=== PATIENT | male | born 1955 | race Caucasian/White ===

== ENCOUNTER 2020-09-25 12:32 | Inpatient (IN) ==
[2020-09-25] MEDS ORDERED: ONDANSETRON 4 MG/2 ML VIAL IV PRN (14:41)
[2020-09-25] MEDS ORDERED: SENNOSIDES 1 TABLET PO PRN (14:41)
[2020-09-25] MEDS ORDERED: LACTULOSE 20 GM/30 ML ORAL.SOL PO PRN (14:41)
[2020-09-25] MEDS: 0.9 % SODIUM CHLORIDE 1,000 ML IV SCH (15:00)
[2020-09-25 15:43] LABS: Hematocrit 27.7 % (41.0-55.0); Mean Cell Volume 89.4 fL (80.0-100.0); Mean Corpuscular HGB Conc 32.5 g/dL (31.0-36.0); Mean Platelet Volume 10.7 fL (7.4-10.4); Platelet Count 147 K/mcL (140-440); Red Cell Distribution Width 14.1 % (11.5-14.5); WBC 14.2 K/mcL (4.5-11.0)
[2020-09-25] MEDS ORDERED: PANTOPRAZOLE 40 MG VIAL IV ONE (15:56)
[2020-09-25] MEDS ORDERED: PANTOPRAZOLE 80 MG in 0.9 % SODIUM CHLORIDE 100 ML IV SCH (16:00)
[2020-09-25 16:10] LABS: ALT/SGPT 13 U/L (<40); AST/SGOT 14 U/L (<40); Albumin 3.7 gm/dL (3.2-5.2); Albumin/Globulin Ratio 1.8 (1.0-2.3); Alkaline Phosphatase 54 U/L (39-117); Bilirubin,Total 0.3 mg/dL (0.1-1.0); Blood Urea Nitrogen 18 mg/dL (8-23); Calcium 8.2 mg/dL (8.6-10.4); Carbon Dioxide 23 mmol/L (22-30); Chloride 106 mmol/L (96-108); Globulin 2.1 gm/dL (2.2-3.7); Glomerular Filtration Rate 92; Glucose 151 mg/dL (70-105)
[2020-09-25] MEDS ORDERED: PEG 3350/NA SULF,BICARB,CL/KCL 4,000 ML ORAL.SOL PO ONE (16:10)
[2020-09-25 16:13] LABS: INR 1.1 (0.9-1.1); Prothrombin Time 14.5 sec (11.9-14.5)
--- NOTE | 2020-09-25 16:17 | Internal Medicine Consult Note ---
HPI Data of Consult Consult date: 09/25/20 Primary Care Provider: Emir Baldwin Consult Narrative Patient Information: Note initiated : 09/25/20 at 4:10 pm Service Date, if different from initiated Date: [] Patient: Mamadou Ruggiero 65 y/o M admitted on 09/25/20 for GI bleed. Chief Complaint: [hematochezia] Mr. Ruggiero is a 65 year old white male on clopidogrel due to a history of DVT with PAD who presents for evaluation of a 24 hour history of painless hematochezia. He was buying horn at a grocery store for a when he was struck by the urge to have an urgent BM and was surprised to pass only hematochezia. He returned home and had 12-13 episodes throughout the night, ultimately presenting to [facility] ED, where hemoglobin was 10. He was transferred here for GI evaluation. Bleeding stopped at 1pm, when he passed brown stool per his report. He has not previously had a colonoscopy. He admits he uses Aleve 2 tablets 2-3 times month for headache or insomnia. He denies any melena, dysphagia, heartburn or indigestion. Past medical history is signficant for gout, hypertension, DVT, PAD. Past surgical history is significant for bilateral inguinal hernia repair and popliteal/femoral stent placement. Current medications include clopidogrel, losartan, allopurinol, naproxen. cc:: CC: Figueroa Caldera MD Review of Systems All systems: reviewed and no additional remarkable complaints except as stated PFSH PFSH All Active Problems (Updated 09/25/20 @ 16:17 by LANA Hinojosa) Hematochezia (Acute) MEDS/ALLERGIES Home Medications and Allergies Home Medications Medication Instructions Recorded Confirmed Type allopurinol 300 mg PO DAILY 09/25/20 09/25/20 History atenolol 100 mg PO DAILY 09/25/20 09/25/20 History clopidogrel 75 mg PO DAILY 09/25/20 09/25/20 History Allergies Allergy/AdvReac Type Severity Reaction Status Date / Time influenza virus vaccine ts Allergy Mild Fever Verified 09/25/20 15:58 [id number] (36 mos,up) [From Fluarix] Sulfa (Sulfonamide Allergy Unknown Unknown Verified 09/25/20 15:58 Antibiotics) EXAM Constitutional Vitals: Temp Pulse Resp BP Pulse Ox 97.2 F 105 H 16 182/89 98 09/25/20 14:00 09/25/20 14:00 09/25/20 14:00 09/25/20 14:00 09/25/20 14:00 Head Head exam: Present atraumatic, normal inspection and normocephalic Eye Eye exam: Present normal appearance ENT ENT exam: Present normal exam Respiratory Respiratory exam: Present normal respiratory exam and CTAB Cardiovascular Cardiovascular exam: Present normal rate and rhythm; Absent gallop, rubs and systolic murmur GI/Abdominal GI/Abdominal exam: Present normal bowel sounds and soft; Absent mass and organomegaly Neurological Exam Neurological exam: Present alert and oriented X3 Skin Skin exam: Present dry and warm Additional comments: no stigmata of chronic liver disease. DATA Data Completed and Pending Labs: Labs from last 24 hours 09/25/20 09/25/20 09/25/20 14:58 14:58 14:58 WBC RBC Hgb Hct MCV MCH MCHC RDW Plt Count MPV Platelet Estimate RBC Morphology PT Pending INR Pending VBG Lactic Acid 4.6 H* Sodium 143 Potassium 4.6 Chloride 106 Carbon Dioxide 23 Anion Gap 14.0 BUN 18 Creatinine 0.8 GFR Calculation 92 Glucose 151 H Calcium 8.2 L Total Bilirubin 0.3 AST 14 ALT 13 Alkaline Phosphatase 54 Total Protein 5.8 L Albumin 3.7 Globulin 2.1 L Albumin/Globulin Ratio 1.8 09/25/20 14:58 WBC 14.2 H RBC 3.10 L Hgb 9.0 L Hct 27.7 L MCV 89.4 MCH 29.0 MCHC 32.5 RDW 14.1 Plt Count 147 MPV 10.7 H Platelet Estimate Pending RBC Morphology Pending PT INR VBG Lactic Acid Sodium Potassium Chloride Carbon Dioxide Anion Gap BUN Creatinine GFR Calculation Glucose Calcium Total Bilirubin AST ALT Alkaline Phosphatase Total Protein Albumin Globulin Albumin/Globulin Ratio A/P Assessment and plan (1) Hematochezia: Status: Acute Comment: We will further evaluate his painless hematochezia with colonoscopy; suspect diverticular bleed. Will start Colyte and clear liquid diet. I discussed this case with Dr. Lilly. Time Spent With Patient Time: Total time spent is greater than 50% in coordination of care (as documented) at patient's floor/unit and/or counseling patient:
--- NOTE | 2020-09-25 17:18 | Internal Med History&Physical ---
HPI History of Present Illness Patient information: Note initiated : 09/25/20 at 5:18 pm Service Date, if different from initiated Date: [] Patient: Mamadou Ruggiero 65 y/o M admitted on 09/25/20 for GI bleed. Chief Complaint: [] History of present illness: Mr. Ruggiero is a 65 year old male with a history of hypertension, peripheral vascular disease, gout who developed abdominal discomfort with bloating followed by bloody bowel movements yesterday. The bowel movements persisted, the patient went to the [facility] emergency department was found to have anemia. The patient was transferred to [facility] for GI work-up. Patient says that after multiple bloody bowel movements he later had normal bowel movements without any blood. Patient has never had a colonoscopy. He denies ever having GI bleeding. He does take Plavix for peripheral vascular disease. He has had stents in his bilateral lower extremity arteries. Patient also takes NSAIDs occasionally for pain. Admission labs show a leukocytosis, hemoglobin of 9, elevated lactic acid of 4.6. Patient is hemodynamically stable, discomfort has resolved. PT/INR was normal. Review of systems Constitutional: no fever, fatigue, or weight loss Eyes: no vision changes or pain Cardiovascular: no chest pain, no palpitations Respiratory: no cough or dyspnea Gastrointestinal: Positive for abdominal bloating and bright red blood per rectum. Genitourinary: no dysuria or difficulty voiding Musculoskeletal: no arthralgia or myalgia Integumentary: no skin lesion or wound Neurological: no focal weakness or numbness Psychiatric: no anxiety or depression Physical exam Head: Atraumatic, normal inspection. Eyes: normal appearance, no scleral icterus. Neck: full ROM Respiratory: no respiratory distress. Cardiovascular: Regular bradycardia, S1, S2. GI/Abdominal: soft, nontender, no guarding. Extremities: full range of motion, nontender. Neurological: CN II-XII intact, intact motor, intact sensation. Psychiatric: normal mood. Skin: warm, normal color PFSH PFSH All Active Problems (Updated 09/25/20 @ 16:17 by LANA Hinojosa) Hematochezia (Acute) MEDS/ALLERGIES Home Medications and Allergies Home Medications Medication Instructions Recorded Confirmed Type allopurinol 300 mg PO DAILY 09/25/20 09/25/20 History atenolol 100 mg PO DAILY 09/25/20 09/25/20 History clopidogrel 75 mg PO DAILY 09/25/20 09/25/20 History Allergies Allergy/AdvReac Type Severity Reaction Status Date / Time influenza virus vaccine ts Allergy Mild Fever Verified 09/25/20 15:58 [id number] (36 mos,up) [From Fluarix] Sulfa (Sulfonamide Allergy Unknown Unknown Verified 09/25/20 15:58 Antibiotics) EXAM Constitutional Vitals: Temp Pulse Resp BP Pulse Ox 97.6 F 44 L 23 H 165/87 97 09/25/20 16:01 09/25/20 16:44 09/25/20 16:44 09/25/20 16:01 09/25/20 16:44 DATA Data Completed and Pending Labs: Labs from last 24 hours 09/25/20 09/25/20 09/25/20 14:58 14:58 14:58 WBC RBC Hgb Hct MCV MCH MCHC RDW Plt Count MPV Platelet Estimate RBC Morphology PT 14.5 INR 1.1 VBG Lactic Acid 4.6 H* Sodium 143 Potassium 4.6 Chloride 106 Carbon Dioxide 23 Anion Gap 14.0 BUN 18 Creatinine 0.8 GFR Calculation 92 Glucose 151 H Calcium 8.2 L Total Bilirubin 0.3 AST 14 ALT 13 Alkaline Phosphatase 54 Total Protein 5.8 L Albumin 3.7 Globulin 2.1 L Albumin/Globulin Ratio 1.8 09/25/20 14:58 WBC 14.2 H RBC 3.10 L Hgb 9.0 L Hct 27.7 L MCV 89.4 MCH 29.0 MCHC 32.5 RDW 14.1 Plt Count 147 MPV 10.7 H Platelet Estimate Pending RBC Morphology Pending PT INR VBG Lactic Acid Sodium Potassium Chloride Carbon Dioxide Anion Gap BUN Creatinine GFR Calculation Glucose Calcium Total Bilirubin AST ALT Alkaline Phosphatase Total Protein Albumin Globulin Albumin/Globulin Ratio A/P Narrative A/P Narrative: Assessment: 65 year old male with a history of hypertension, peripheral vascular disease, gout admitted for hematochezia. #GI bleed, likely lower GI bleed #Acute blood loss anemia #Lactic acidosis #History of hypertension #Peripheral arterial disease s/p daren lower extremity arterial stents #Gout Plan -IV fluid. -Trend hemoglobin, transfuse for anemic symptoms or hgb < 7. -Hold Plavix. -Continue home Atenolol w/ parameters and Allopurinol. -GI consult, bowel prep. -Clear liquid diet. -Code status: DNR per patient's request -Disposition: home Time Spent With Patient Time: Total time spent is greater than 50% in coordination of care (as documented) at patient's floor/unit and/or counseling patient: QUALITY Stroke Symptom Onset Unknown: No
[2020-09-25 18:45] LABS: Basophils % (Manual) 1 % (0-2); Lymphocytes % 5 % (15-49); Monocytes % (Manual) 5 % (1-12); Platelet Estimate NORMAL (Normal); RBC Morphology NORMAL (Normal); Segmented Neutrophils % 90 % (38-78)
[2020-09-25] MEDS: 0.9 % SODIUM CHLORIDE 10 ML SYRINGE IV SCH (20:06)
[2020-09-25] MEDS: DOCUSATE SODIUM 100 MG CAPSULE PO SCH (20:06)
[2020-09-26] MEDS: 0.9 % SODIUM CHLORIDE 1,000 ML IV SCH ×3 (01:34→22:17)
[2020-09-26] MEDS: 0.9 % SODIUM CHLORIDE 10 ML SYRINGE IV SCH ×3 (05:31→21:41)
[2020-09-26 06:15] LABS: Hemoglobin 7.3 g/dL (13.5-16.5); Mean Cell Volume 89.1 fL (80.0-100.0); Mean Corpuscular HGB Conc 33.2 g/dL (31.0-36.0); Mean Platelet Volume 10.5 fL (7.4-10.4); Platelet Count 123 K/mcL (140-440); RBC 2.47 M/mcL (4.50-5.90); Red Cell Distribution Width 14.1 % (11.5-14.5)
[2020-09-26 06:36] LABS: ALT/SGPT 10 U/L (<40); AST/SGOT 13 U/L (<40); Albumin 3.2 gm/dL (3.2-5.2); Albumin/Globulin Ratio 1.8 (1.0-2.3); Alkaline Phosphatase 51 U/L (39-117); Bilirubin,Total 0.3 mg/dL (0.1-1.0); Blood Urea Nitrogen 13 mg/dL (8-23); Calcium 7.3 mg/dL (8.6-10.4); Carbon Dioxide 26 mmol/L (22-30); Chloride 104 mmol/L (96-108); Globulin 1.8 gm/dL (2.2-3.7); Glomerular Filtration Rate 104; Glucose 111 mg/dL (70-105)
[2020-09-26 07:42] LABS: Band Neutrophils % 6 % (0-10); Lymphocytes % 18 % (15-49); Metamyelocytes % 1 %; Monocytes % (Manual) 5 % (1-12); Nucleated Red Blood Cells 1 % (0-0); Platelet Estimate DECREASED (Normal); RBC Morphology NORMAL (Normal); Reactive Lymphocytes 1 % (0-2); Segmented Neutrophils % 69 % (38-78)
[2020-09-26] MEDS: DOCUSATE SODIUM 100 MG CAPSULE PO SCH ×2 (08:20→21:40)
[2020-09-26] MEDS ORDERED: KETAMINE 50 MG/ML ML IV PRN (08:35)
[2020-09-26] MEDS: ATENOLOL 50 MG TABLET PO SCH (08:38)
[2020-09-26] MEDS: ALLOPURINOL 300 MG TABLET PO SCH (08:39)
[2020-09-26] MEDS ORDERED: MIDAZOLAM 2 MG/2 ML VIAL IV SCH (08:45)
[2020-09-26] MEDS ORDERED: PROPOFOL 200 MG/20 ML VIAL IV SCH (08:45)
[2020-09-26] MEDS ORDERED: ATENOLOL 50 MG TABLET PO SCH (09:00)
--- NOTE | 2020-09-26 11:29 | Internal Med Progress Note ---
SUBJECTIVE Subjective Patient information: Note initiated : 09/26/20 at 11:26 am Service Date, if different from initiated Date: [] Patient: Mamadou Ruggiero 65 y/o M admitted on 09/25/20 for GI bleed. Chief Complaint: [] Interval history: Mr. Ruggiero is a 65 year old male with a history of hypertension, peripheral vascular disease, gout who developed abdominal discomfort with bloating followed by bloody bowel movements yesterday. The bowel movements persisted, the patient went to the [facility] emergency department was found to have anemia. The patient was transferred to [facility] for GI work-up. Patient says that after multiple bloody bowel movements he later had normal bowel movements without any blood. Patient has never had a colonoscopy. He denies ever having GI bleeding. He does take Plavix for peripheral vascular disease. He has had stents in his bilateral lower extremity arteries. Patient also takes NSAIDs occasionally for pain. Admission labs show a leukocytosis, hemoglobin of 9, elevated lactic acid of 4.6. Patient is hemodynamically stable, discomfort has resolved. PT/INR was normal. 09/26 Hemoglobin trended down to 7.3 however vitals are stable and patient is asymptomatic, recheck hemoglobin later today. No more bloody bowel movement, clear stools after Golytely bowel preparation. GI planning for colonoscopy today. Physical exam Head: Atraumatic, normal inspection. Eyes: normal appearance, no scleral icterus. Neck: full ROM Respiratory: no respiratory distress. Cardiovascular: Regular bradycardia, S1, S2. GI/Abdominal: soft, nontender, no guarding. Extremities: full range of motion, nontender. Neurological: CN II-XII intact, intact motor, intact sensation. Psychiatric: normal mood. Skin: warm, normal color Constitutional Vitals: Vital Signs Temp Pulse Resp BP Pulse Ox 98.8 F 72 14 121/74 98 09/26/20 10:00 09/26/20 10:00 09/26/20 10:00 09/26/20 10:00 09/26/20 10:00 Period Temp Pulse Resp BP Sys/Lombardi Pulse Ox Last 24 Hr 97.2 F-99.1 F 44-105 14-23 121-182/70-89 94-100 Intake and Output 09/25/20 09/26/20 09/26/20 21:59 05:59 13:59 Intake Total 240 1000 100 Balance 240 1000 100 Weight 88.723 kg Intake & Output: Intake & Output 09/25/20 09/26/20 09/26/20 21:59 05:59 13:59 Intake Total 240 1000 100 Balance 240 1000 100 Weight 88.723 kg Intake: IV 1000 Sodium Chloride 0.9% 1,000 ml @ 1000 100 mls/hr IV .Q10H [facility] Rx#: [id number] Oral 240 100 Other: Meal Breakfast Percent of Meal Consumed 100% Urine Appearance Clear Urine Color Pale Urine Odor Normal Stool Size Moderate Stool Color Pale Stool Consistency Watery # Voids 2 1 # Bowel Movements 1 OBJ DATA Labs CBC & Chem 7: 09/26/20 05:31 09/26/20 05:31 Labs: Abnormal Lab Results 09/26/20 09/26/20 09/26/20 05:32 05:31 05:31 WBC 12.0 H RBC 2.47 L Hgb 7.3 L Hct 22.0 L Plt Count 123 L MPV 10.5 H Seg Neutrophils % Lymphocytes % Nucleated RBCs 1 H Platelet Estimate Decreased A VBG Lactic Acid 2.2 H Creatinine 0.6 L Glucose 111 H Calcium 7.3 L Total Protein 5.0 L Globulin 1.8 L 09/26/20 09/25/20 09/25/20 00:19 18:41 14:58 WBC RBC Hgb 7.8 L 8.8 L Hct Plt Count MPV Seg Neutrophils % Lymphocytes % Nucleated RBCs Platelet Estimate VBG Lactic Acid 4.6 H* Creatinine Glucose Calcium Total Protein Globulin 09/25/20 09/25/20 14:58 14:58 WBC 14.2 H RBC 3.10 L Hgb 9.0 L Hct 27.7 L Plt Count MPV 10.7 H Seg Neutrophils % 90 H Lymphocytes % 5 L Nucleated RBCs Platelet Estimate VBG Lactic Acid Creatinine Glucose 151 H Calcium 8.2 L Total Protein 5.8 L Globulin 2.1 L Meds: Medications Allopurinol (Allopurinol 300 Mg Tablet) 300 mg PO DAILY [facility] Last Admin: 09/26/20 08:39 Dose: 300 mg Documented by: Atenolol (Atenolol 50 Mg Tablet) 100 mg PO DAILY [facility] Last Admin: 09/26/20 08:38 Dose: 100 mg Documented by: Diagnostic Test (Pha) (Accu-Chek 1 Each Strip) 1 each FS UD PRN PRN Reason: DM Stop: 09/26/20 16:35 Docusate Sodium (Docusate Sodium 100 Mg Capsule) 100 mg PO BID [facility] Last Admin: 09/26/20 08:20 Dose: Not Given Documented by: Sodium Chloride (Sodium Chloride 0.9%) 1,000 mls @ 100 mls/hr IV .Q10H [facility] Last Admin: 09/26/20 01:34 Dose: 100 mls/hr Documented by: Ketamine HCl (Ketamine 50 Mg/Ml Ml) 50 mg IV ONCE PRN PRN Reason: Sedation Stop: 09/26/20 16:35 Lactulose (Lactulose 20 Gm/30 Ml Oral.Dnona) 10 gm PO DAILYP PRN PRN Reason: Constipation Midazolam HCl (Midazolam 2 Mg/2 Ml Vial) 0 mg IV ONCE [facility] Stop: 09/26/20 16:35 Ondansetron HCl (Ondansetron 4 Mg/2 Ml Vial) 4 mg IV Q4HP PRN; Protocol PRN Reason: Nausea And Vomiting Propofol (Propofol 200 Mg/20 Ml Vial) 0 mg IV UD [facility] Stop: 09/26/20 16:35 Senna (Sennosides 1 Tablet) 2 tab PO HSP PRN PRN Reason: Constipation Sodium Chloride (0.9 % Sodium Chloride 10 Ml Syringe) 10 ml IV Q8 [facility] Last Admin: 09/26/20 05:31 Dose: Not Given Documented by: A/P Narrative A/P Narrative: Assessment: 65 year old male with a history of hypertension, peripheral vascular disease, gout admitted for hematochezia. #GI bleed, likely lower GI bleed #Acute blood loss anemia #Lactic acidosis, resolving #History of hypertension #Peripheral arterial disease s/p daren lower extremity arterial stents #Gout Plan -Trend hemoglobin, transfuse for anemic symptoms or hgb < 7. -Hold Plavix. -Continue home Atenolol w/ parameters and Allopurinol. -GI following, colonoscopy today. -Clear liquid diet. -Code status: DNR per patient's request -Disposition: home Time Spent With Patient Time: Total time spent is greater than 50% in coordination of care (as documented) at patient's floor/unit and/or counseling patient: QUALITY Stroke Symptom Onset Unknown: No
[2020-09-26] MEDS ORDERED: 0.9 % SODIUM CHLORIDE 250 ML IV SCH (16:45)
[2020-09-27] MEDS: 0.9 % SODIUM CHLORIDE 10 ML SYRINGE IV SCH (05:44)
[2020-09-27 07:09] LABS: Basophils # (Auto) 0.04 K/mcL (0.00-0.20); Basophils % (Auto) 0.5 % (0.0-2.0); Eosinophils # (Auto) 0.09 K/mcL (0.00-0.70); Eosinophils % (Auto) 1.1 % (0.0-7.0); Hematocrit 23.9 % (41.0-55.0); Hemoglobin 7.7 g/dL (13.5-16.5); Lymphocytes # (Auto) 1.88 K/mcL (1.50-4.80); Lymphocytes % (Auto) 23.9 % (15.0-49.0); Mean Cell Volume 86.6 fL (80.0-100.0); Mean Corpuscular HGB Conc 32.2 g/dL (31.0-36.0); Mean Platelet Volume 10.9 fL (7.4-10.4); Monocytes % (Auto) 10.2 % (1.0-12.0); Neutrophils % (Auto) 64.3 % (38.0-78.0); Platelet Count 116 K/mcL (140-440); RBC 2.76 M/mcL (4.50-5.90); Red Cell Distribution Width 16.3 % (11.5-14.5); WBC 7.9 K/mcL (4.5-11.0)
[2020-09-27 07:50] LABS: Iron 121 ug/dL (61-157); TIBC Calculation 319 ug/dl (228-428); Transferrin % Saturation 38 % (20-50)
--- NOTE | 2020-09-27 08:28 | Colonoscopy Procedure Note ---
Colonoscopy Procedure Notes Procedure Information Patient information: Note initiated : 09/27/20 at 8:27 am Service Date: 09/26/20 Patient: Mamadou Ruggiero 65 y/o M admitted on 09/25/20 for GI bleed. Pre-op diagnosis general: GI bleed. Post-op diagnosis general: Colonic polyp. Resolved diverticular bleed. Procedure: Colonoscopy with Polypectomy Snare Procedure narrative: The procedure, alternatives and risks were discussed with the patient and the patient's questions were answered. With endoscopist- administered intravenous sedation, the Olympus colonoscope was introduced into the rectum and advanced to the cecum. Ileocecal valve was identified, intubated, and several centimeters of the terminal ileum were examined. Colonic polyp was seen in the transverse colon; polyp was removed with a snare. It was retrieved for histological examination. Uncomplicated diverticulosis was seen. No blood or bleeding site was seen. Assessment: Colonic polyp. Resolved diverticular bleed. He should avoid ASA and NSAIDs.
--- NOTE | 2020-09-27 08:39 | Discharge Summary ---
Discharge Provider Provider Patient information: Note initiated : 09/27/20 at 8:36 am Service Date, if different from initiated Date: [] Patient: Mamadou Ruggiero 65 y/o M admitted on 09/25/20 for GI bleed. Chief Complaint: [] Date of admission: 09/25/20 13:51 Discharge date: 09/27/20 Primary care physician: Emir Baldwin Consults: 09/25/20 14:55 Consult to Physician [CONS] Routine Comment: Consulting Provider: Stephen Lilly Reason For Exam: Physician to Consult Discharge Meds Discharge Medications Home Medications allopurinol 300 mg PO DAILY 09/25/20 [History Confirmed 09/25/20 Last Taken Unknown] atenolol 100 mg PO DAILY 09/25/20 [History Confirmed 09/25/20 Last Taken Unknown] clopidogrel 75 mg PO DAILY 09/25/20 [History Confirmed 09/25/20 Last Taken Unknown] COURSE Hospital Course Hospital course: Mr. Ruggiero is a 65 year old male with a history of hypertension, peripheral vascular disease, gout who developed abdominal discomfort with bloating followed by bloody bowel movements yesterday. The bowel movements persisted, the patient went to the [facility] emergency department was found to have anemia. The patient was transferred to [facility] for GI work-up. Patient says that after multiple bloody bowel movements he later had normal bowel movements without any blood. Patient has never had a colonoscopy. He denies ever having GI bleeding. He does take Plavix for peripheral vascular disease. He has had stents in his bilateral lower extremity arteries. Patient also takes NSAIDs occasionally for pain. Admission labs show a leukocytosis, hemoglobin of 9, elevated lactic acid of 4.6. Patient is hemodynamically stable, discomfort has resolved. PT/INR was normal. 09/26 Hemoglobin trended down to 7.3 however vitals are stable and patient is asymptomatic, recheck hemoglobin later today. No more bloody bowel movement, clear stools after Golytely bowel preparation. GI planning for colonoscopy today. 09/27 Colonoscopy showed diverticulosis but no active bleeding, GI feels this was a resolved diverticular bleed. There was a transverse colon polyp that was removed with a snare. No aspirin or NSAIDs, discussed with the patient. GI ok with resuming home plavix now. Iron studies normal. Discharged to home. Physical exam Head: Atraumatic, normal inspection. Eyes: normal appearance, no scleral icterus. Neck: full ROM Respiratory: no respiratory distress. Cardiovascular: Regular bradycardia, S1, S2. GI/Abdominal: soft, nontender, no guarding. Extremities: full range of motion, nontender. Neurological: CN II-XII intact, intact motor, intact sensation. Psychiatric: normal mood. Skin: warm, normal color Discharge diagnosis: Lower GI bleed, likely diverticular bleed Secondary discharge diagnosis: Colonic polyp-removed Reason for admission: Hematochezia Time Spent with Patient Time attestation: Total time spent providing and/or coordinating discharge services: EXAM Constitutional Vitals: Temp Pulse Resp BP Pulse Ox 98.8 F 70 18 152/81 92 09/27/20 08:00 09/27/20 08:00 09/27/20 08:00 09/27/20 08:00 09/27/20 08:00 Discharge Data Data Completed and Pending Labs on day of discharge: Labs from last 24 hours 09/27/20 09/27/20 09/26/20 05:31 05:31 17:58 WBC 7.9 RBC 2.76 L Hgb 7.7 L 6.8 L* Hct 23.9 L MCV 86.6 MCH 27.9 MCHC 32.2 RDW 16.3 H Plt Count 116 L MPV 10.9 H Neut % (Auto) 64.3 Lymph % (Auto) 23.9 [place] % (Auto) 10.2 Eos % (Auto) 1.1 Baso % (Auto) 0.5 Lymph # (Auto) 1.88 [place] # (Auto) 0.80 Eos # (Auto) 0.09 Baso # (Auto) 0.04 Absolute Neutrophils 5.07 Iron 121 TIBC 319 Unsat Iron Binding 198 Transferrin % Sat 38 09/26/20 12:20 WBC RBC Hgb 6.8 L* Hct MCV MCH MCHC RDW Plt Count MPV Neut % (Auto) Lymph % (Auto) [place] % (Auto) Eos % (Auto) Baso % (Auto) Lymph # (Auto) [place] # (Auto) Eos # (Auto) Baso # (Auto) Absolute Neutrophils Iron TIBC Unsat Iron Binding Transferrin % Sat Discharge Plan Patient/Caregiver Discharge Instructions Activity: increase activity as tolerated Prescriptions: Continued atenolol 100 mg tablet 100 mg PO DAILY RF: 0 clopidogrel 75 mg tablet 75 mg PO DAILY RF: 0 allopurinol 300 mg tablet 300 mg PO DAILY RF: 0 Follow Up Plan Follow up with: Emir Baldwin MD [Primary Care Provider] - Patient Disposition: Home, Self-Care Overall status at discharge: patient is progressing back to baseline Discharge Orders: Discharge Order (Routine); Ordered 09/27/20 Ordered By: Figueroa Caldera
[2020-09-27] MEDS: DOCUSATE SODIUM 100 MG CAPSULE PO SCH (09:02)
[2020-09-27] MEDS: ALLOPURINOL 300 MG TABLET PO SCH (09:03)
[2020-09-27] MEDS: ATENOLOL 50 MG TABLET PO SCH (09:03)
--- NOTE | 2020-09-27 12:18 | Surgical Pathology Report ---
Histology Microscopic Diagnosis Specimen A- COLON, TRANSVERSE, POLYPECTOMY: --- MULTIPLE FRAGMENTS OF VEGETABLE MATERIAL. --- NO INTACT COLONIC MUCOSA PRESENT. (DMT) Clinical History GI bleed. Procedural Impression Polyp; resolved diverticular bleed. Gross Description Received in formalin labeled transverse polyp, are multiple teixeira-moreno tissue fragments 0.1 to 1.1 cm. Totally submitted in one cassette. (JPH:adj) Electronically Signed Emir Whitman MD, FCAP Electronically Signed 09/27/2020 12:17
== END 2020-09-27 09:27 | disposition home or self-care (01) | DRG 378 ==
LOC: ICU 13:51
PROVIDERS: ADMIT Internal Medicine; ATTEND Internal Medicine